=== PATIENT | male | born 1980 | race Caucasian/White ===

== ENCOUNTER 2019-04-13 08:31 | Day surgery (SDC) | payer MEDICAID ==
[2019-04-09 14:53] LABS: CLARITY,URINE CLEAR (Clear); COLOR,URINE STRAW (Yellow); GLUCOSE, URINE NEGATIVE (Neg); KETONES,URINE NEGATIVE (Neg); LEUKOCYTE ESTERASE ,URINE NEGATIVE (Neg); NITRITES, URINE NEGATIVE (Neg); OCCULT BLOOD,URINE NEGATIVE (Neg); PROTEIN,URINE NEGATIVE (Neg); UA COLLECTION TYPE NON-SPECIFIED; UROBILINOGEN,URINE 0.2 E.U/dL (0.2-1.0)
[2019-04-09 14:54] LABS: BASOPHILS # (AUTO) 0.1 X10'3 (0-0.2); BASOPHILS % (AUTO) 1.2 % (0-1); EOSINOPHILS # (AUTO) 0.3 X10'3 (0-0.9); LYMPHOCYTES # (AUTO) 1.7 X10'3 (1.1-4.8); LYMPHOCYTES % (AUTO) 25.8 % (21-51); MEAN CORPUSCULAR HEMOGLOBIN 33.6 PG (27.0-31.0); MEAN CORPUSCULAR HGB CONC 34.9 g/dL (33.0-36.5); MEAN CORPUSCULAR VOLUME 96.5 FL (78-98); MEAN PLATELET VOLUME 7.5 FL (7.4-10.4); MONOCYTES # (AUTO) 0.5 X10'3 (0-0.9); MONOCYTES % (AUTO) 7.8 % (2-12); NEUTROPHILS # (AUTO) 4.1 X10'3 (1.8-7.7); NEUTROPHILS % (AUTO) 60.2 % (42-75); PRE OP HEMOGLOBIN 14.3 g/dL (14.0-17.9); PRE OP PLATELET COUNT 275 X10'3 (140-440); RED BLOOD COUNT 4.25 X10'6 (4.70-6.10); RED CELL DISTRIBUTION WIDTH 13.3 % (11.5-14.5)
[2019-04-09 15:14] LABS: ALBUMIN 3.8 G/DL (3.4-5.0); ALBUMIN/GLOBULIN RATIO 1.1 (1.1-1.5); ALKALINE PHOSPHATASE 63 IU/L (46-116); BLOOD UREA NITROGEN 14 MG/DL (7-18); BUN/CREATININE RATIO 18.4 (5.4-32.0); CALCIUM 8.5 MG/DL (8.5-10.1); CHLORIDE 109 MMOL/L (99-107); CREATININE 0.76 MG/DL (0.60-1.10); PRE OP ALT 25 U/L (30-65); PRE OP ANION GAP 11 (8-16); PRE OP AST 16 U/L (10-37); PRE OP BILIRUB, TOTAL 0.2 MG/DL (0.0-1.0); PRE OP GLUCOSE 87 MG/DL (70-104); PRE OP POTASSIUM 3.7 MMOL/L (3.4-5.1); PRE OP SODIUM 144 MMOL/L (135-145); TOTAL CARBON DIOXIDE 24.3 MMOL/L (24-32); TOTAL PROTEIN 7.2 G/DL (6.4-8.2); eGFR > 90 ML/MIN
[~2019-04-13] VITALS: Ht 175.3 cm; Wt 70.1 kg
[2019-04-13] VITALS (12 sets, daily range): BP systolic 97–133; BP diastolic 66–91
[~2019-04-13 08:31] MED LIST: NO HOME MEDS; albuterol 2.5 MG/3 ML nebule NEB ONE; cefazolin/dext.iso 2gm/100 ML IV ONE; famotidine 20mg tablet PO ONE; ringers solution, lacted 1,000 ML IV SCH
[2019-04-13] MEDS ORDERED: ringers solution, lacted 1,000 ML IV SCH (11:41)
[2019-04-13] MEDS ORDERED: morphine 4 MG/ML inj SYRINge IV PRN ×2 (11:45)
[2019-04-13] MEDS ORDERED: ondansetron/PF 4mg/2ml inj IV PRN (11:45)
[2019-04-13] MEDS ORDERED: proCHLORperazine 10 MG/2 ml inj IV PRN (11:45)
[2019-04-13] MEDS ORDERED: meperidine/PF 25mg/ml syringe IV PRN ×3 (11:45)
[2019-04-13 12:13] LABS: PRE OP PROTIME 9.8 SECONDS (9.0-12.0)
[2019-04-13] MEDS ORDERED: BUPIVAcaine/PF 2.5 mg/ml (0.25%) 30ml vial ONE (12:16)
[2019-04-13] MEDS ORDERED: LIDOcaine 1% 30ml preserv. free vial ONE (12:16)
[2019-04-13] MEDS ORDERED: MIDAZolam 5mg/5ml vial ONE (12:35)
[2019-04-13] MEDS ORDERED: fentaNYL/PF 50MCG/1 ML 2ML syringe ONE ×2 (12:35→12:51)
[2019-04-13] MEDS ORDERED: ketamine 50mg/5ml syringe ONE (12:37)
[2019-04-13] MEDS ORDERED: propofol inj 20 ML IV ONE (12:58)
[2019-04-13] MEDS ORDERED: LIDOcaine 1%/PF 5ML 10 MG/ML VIAL ONE (12:58)
--- NOTE | 2019-04-13 13:05 | NUR ---
Received from OR via BED , accompanied by Anesthesiologist DR SANDOVAL and report given by Anesthesiolgist. PATIENT WAKING UP, DENIES PAIN, V/S WNL, NEUROVASCULAR CHECKS INTACT, 20G PIV LUE, SCD ON, DRESSING TO LEFT FLANK CDI
--- NOTE | 2019-04-13 14:45 | NUR ---
PATIENT A&OX4, DENIES PAIN, V/S WNL, NEUROVASCULAR CHECKS INTACT, 20G PIV LUE D/C, SCD OFF, DRESSING TO LEFT FLANK NEAR ABDOMEN CDI.. I HAVE REVIEWED D/C INSTRUCTIONS WITH PATIENT AND FAMILY HAVE VERBALIZED UNDERSTANDING.PATIENT WAS D/C HOME WITH ALL BELONGINGS AND FAMILY GAVE TRANSPORT HOME.
== END 2019-04-13 14:45 | disposition home or self-care (01) ==
LOC: PAS 08:31
PROVIDERS: ATTEND Surgery
DX: L72.8 Other follicular cysts of the skin and subcutaneous tissue (principal); F17.210 Nicotine dependence, cigarettes, uncomplicated; Z79.01 Long term (current) use of anticoagulants; Z79.899 Other long term (current) drug therapy
CPT/HCPCS: 11406; 36415; 80053; 81003; 82948; 85025; 85610; 85730; 93005; J2001; J2250; J2704; J3010; J3490; A4215; A4618; A6449; A7000; J7120

== ENCOUNTER 2020-03-01 14:59 | Emergency (ER) | payer MEDICAID ==
[~2020-03-01] VITALS: Ht 175.3 cm; Wt 75.0 kg
[~2020-03-01 14:59] MED LIST changes: -albuterol 2.5 MG/3 ML nebule NEB ONE; -cefazolin/dext.iso 2gm/100 ML IV ONE; -famotidine 20mg tablet PO ONE; -ringers solution, lacted 1,000 ML IV SCH
[2020-03-01 17:03] LABS: BASOPHILS # (AUTO) 0.1 X10'3 (0-0.2); BASOPHILS % (AUTO) 1.3 % (0-1); EOSINOPHILS # (AUTO) 0.1 X10'3 (0-0.9); EOSINOPHILS % (AUTO) 1.1 % (0-6); HEMATOCRIT 41.6 % (42.0-52.0); HEMOGLOBIN 13.7 g/dl (14.0-17.9); LYMPHOCYTES # (AUTO) 1.1 X10'3 (1.1-4.8); LYMPHOCYTES % (AUTO) 19.5 % (21-51); MEAN CORPUSCULAR HEMOGLOBIN 32.2 PG (27.0-31.0); MEAN CORPUSCULAR VOLUME 97.5 FL (78-98); MEAN PLATELET VOLUME 7.3 FL (7.4-10.4); MONOCYTES # (AUTO) 0.3 X10'3 (0-0.9); MONOCYTES % (AUTO) 5.5 % (2-12); NEUTROPHILS # (AUTO) 4.1 X10'3 (1.8-7.7); NEUTROPHILS % (AUTO) 72.6 % (42-75); PLATELET COUNT 256 X10'3 (140-440); RED BLOOD COUNT 4.27 X10'6 (4.70-6.10); RED CELL DISTRIBUTION WIDTH 14.3 % (11.5-14.5); WHITE BLOOD COUNT 5.6 X10'3 (4.5-11.0)
[2020-03-01 17:20] LABS: ALANINE AMINOTRANSFERASE 25 U/L (12-78); ALBUMIN 3.7 G/DL (3.4-5.0); ALBUMIN/GLOBULIN RATIO 1.1 (1.1-1.5); ALKALINE PHOSPHATASE 64 IU/L (46-116); ANION GAP 14 (8-16); ASPARTATE AMINO TRANSFERASE 25 U/L (10-37); BILIRUBIN,TOTAL 0.3 MG/DL (0.1-1.0); BLOOD UREA NITROGEN 9 MG/DL (7-18); BUN/CREATININE RATIO 12.2 (5.4-32.0); CALCIUM 7.8 MG/DL (8.5-10.1); CHLORIDE 110 MMOL/L (99-107); CREATININE 0.74 MG/DL (0.60-1.10); GLUCOSE 71 MG/DL (70-104); POTASSIUM 3.4 MMOL/L (3.5-5.1); SODIUM 146 MMOL/L (135-145); TOTAL PROTEIN 7.1 G/DL (6.4-8.2); eGFR > 90 ML/MIN
--- NOTE | 2020-03-01 18:05 | NUR ---
PT SLEEPING, VS UPDATED
--- NOTE | 2020-03-01 19:14 | NUR ---
Per Barbie REARDON, patient is to remain NPO at this time
--- NOTE | 2020-03-01 20:49 | NUR ---
PT WAS GAIT TESTED AROUND THE ER WITHOUT ASSISTANCE
[2020-03-01 21:55] VITALS: BP 130/78
== END 2020-03-01 21:50 | disposition home or self-care (01) ==
LOC: ER 15:00
DX: F10.129 Alcohol abuse with intoxication, unspecified (principal); R11.10 Vomiting, unspecified; F12.90 Cannabis use, unspecified, uncomplicated; F15.90 Other stimulant use, unspecified, uncomplicated; V29.9XXA Motorcycle rider (driver) (passenger) injured in unspecified traffic accident, initial encounter; Y93.89 Activity, other specified; Y92.488 Other paved roadways as the place of occurrence of the external cause; Y99.8 Other external cause status; Y90.0 Blood alcohol level of less than 20 mg/100 ml
CPT/HCPCS: 36415; 70450; 71045; 72125; 80053; 80320; 85025; 99285

== ENCOUNTER 2020-03-10 07:26 | Emergency (ER) | payer MEDICAID ==
[~2020-03-10] VITALS: Ht 175.3 cm; Wt 66.0 kg
[2020-03-10] MEDS ORDERED: ibuprofen tablet 400 MG TABLET PO ONE (08:00)
[2020-03-10] MEDS ORDERED: morphine 4 MG/ML inj SYRINge IM ONE (08:35)
[2020-03-10] MEDS ORDERED: HYDR-3965 PO (09:19)
[2020-03-10 09:48] VITALS: BP 136/93
== END 2020-03-10 09:54 | disposition home or self-care (01) ==
LOC: ER 07:27
DX: S42.291A Other displaced fracture of upper end of right humerus, initial encounter for closed fracture (principal); F12.90 Cannabis use, unspecified, uncomplicated; F15.90 Other stimulant use, unspecified, uncomplicated; Z98.890 Other specified postprocedural states; Z72.89 Other problems related to lifestyle; Z79.899 Other long term (current) drug therapy; V29.9XXA Motorcycle rider (driver) (passenger) injured in unspecified traffic accident, initial encounter; Y93.89 Activity, other specified; Y92.488 Other paved roadways as the place of occurrence of the external cause; Y99.8 Other external cause status
CPT/HCPCS: 29105; 73020; 73060; 73200; 96372; 99284; J2270

== ENCOUNTER 2020-03-22 08:25 | Day surgery (SDC) | payer MEDICAID ==
[2020-03-21 16:06] LABS: BASOPHILS # (AUTO) 0.1 X10'3 (0-0.2); BASOPHILS % (AUTO) 1.1 % (0-1); EOSINOPHILS # (AUTO) 0.2 X10'3 (0-0.9); EOSINOPHILS % (AUTO) 4.8 % (0-6); LYMPHOCYTES # (AUTO) 1.3 X10'3 (1.1-4.8); LYMPHOCYTES % (AUTO) 25.1 % (21-51); MEAN CORPUSCULAR HEMOGLOBIN 32.8 PG (27.0-31.0); MEAN CORPUSCULAR HGB CONC 33.9 g/dL (33.0-36.5); MONOCYTES # (AUTO) 0.5 X10'3 (0-0.9); MONOCYTES % (AUTO) 9.2 % (2-12); NEUTROPHILS # (AUTO) 3.1 X10'3 (1.8-7.7); NEUTROPHILS % (AUTO) 59.8 % (42-75); PRE OP HEMATOCRIT 40.6 % (42.0-52.0); PRE OP HEMOGLOBIN 13.7 g/dL (14.0-17.9); PRE OP PLATELET COUNT 396 X10'3 (140-440); RED BLOOD COUNT 4.18 X10'6 (4.70-6.10); RED CELL DISTRIBUTION WIDTH 13.1 % (11.5-14.5)
[2020-03-21 16:32] LABS: ALBUMIN 3.8 G/DL (3.4-5.0); ALBUMIN/GLOBULIN RATIO 0.9 (1.1-1.5); ALKALINE PHOSPHATASE 94 IU/L (46-116); BLOOD UREA NITROGEN 16 MG/DL (7-18); BUN/CREATININE RATIO 22.5 (5.4-32.0); CALCIUM 8.8 MG/DL (8.5-10.1); CHLORIDE 107 MMOL/L (99-107); CREATININE 0.71 MG/DL (0.60-1.10); PRE OP ALT 25 U/L (30-65); PRE OP ANION GAP 9 (8-16); PRE OP AST 31 U/L (10-37); PRE OP BILIRUB, TOTAL 0.3 MG/DL (0.0-1.0); PRE OP GLUCOSE 79 MG/DL (70-104); PRE OP SODIUM 142 MMOL/L (135-145); TOTAL CARBON DIOXIDE 25.7 MMOL/L (24-32); TOTAL PROTEIN 7.9 G/DL (6.4-8.2); eGFR > 90 ML/MIN
[~2020-03-22] VITALS: Ht 175.3 cm; Wt 70.5 kg
[~2020-03-22 08:25] MED LIST changes: +ceFAZolin 2gm in dextrose, iso 50 ML IV ONE; +famotidine 20mg tablet PO ONE; +ringers solution, lacted 1,000 ML IV SCH; +vancomycin 1,500 MG in NS 300ml IV soln IV ONE
[2020-03-22 08:35] VITALS: BP 140/79
[2020-03-22] MEDS ORDERED: sevoflurane 250ml liquid IH ONE (12:07)
[2020-03-22] MEDS ORDERED: cloNIDine hcl/PF 100mcg/ml inj ONE (12:12)
[2020-03-22] MEDS ORDERED: fentaNYL/PF 50MCG/1 ML 2ML syringe ONE (12:13)
[2020-03-22] MEDS ORDERED: midazolam 2 mg/2 ml injection ONE ×2 (12:14)
[2020-03-22] MEDS ORDERED: propofol inj 20 ML IV ONE (12:32)
[2020-03-22] MEDS ORDERED: ROPIVAcaine 0.5% (5mg/ml) 30ml vial ONE (12:32)
[2020-03-22] MEDS ORDERED: dexamethasone sod phosphate 4mg/ml inj. ONE (12:32)
[2020-03-22] MEDS ORDERED: ringers solution, lacted 1,000 ML IV SCH (13:26)
[2020-03-22] MEDS ORDERED: meperidine/PF 25mg/ml syringe IV PRN ×3 (13:30)
[2020-03-22] MEDS ORDERED: ondansetron/PF 4mg/2ml inj IV PRN (13:30)
[2020-03-22] MEDS ORDERED: proCHLORperazine 10 MG/2 ml inj IV PRN (13:30)
[2020-03-22] MEDS ORDERED: morphine 2 MG/ML inj. syringe IV PRN (13:30)
[2020-03-22] MEDS ORDERED: morphine 4 MG/ML inj SYRINge IV PRN (13:30)
[2020-03-22] MEDS ORDERED: ondansetron/PF 4mg/2ml inj ONE (14:00)
--- NOTE | 2020-03-22 14:05 | NUR ---
Received from OR via [facility], accompanied by Anesthesiologist EVELYN and report given by Anesthesiolgist. PATIENT WITH 20G PIV IN LEFT UE RUNNING LR AT 100. RIGHT UE IN SLING AND HAS A + RADIAL PULSE. SLING ON. VSS. 10L MASK ON WITH 100% SATURATIONS. Addendum: 03/22/20 at 1415 by Michel Michel RN, RN Amended: Links added.
[2020-03-22 14:07] VITALS: BP 132/90
[2020-03-22 14:17] VITALS: BP 126/89
[2020-03-22 14:27] VITALS: BP 127/88
[2020-03-22 14:37] VITALS: BP 127/84
[2020-03-22 14:47] VITALS: BP 134/82
--- NOTE | 2020-03-22 14:57 | NUR ---
I HAVE REVIEWED D/C INSTRUCTIONS WITH PATIENT AND FAMILY AND THEY HAVE VERBALIZED UNDERSTANDING. PATIENT D/C HOME WITH ALL BELONGINGS AND FAMILY GAVE TRANSPORT HOME. RIGHT SHOULDER DRESSING IS CDI. VSS. Addendum: 03/22/20 at 1518 by Michel Michel RN, RN Amended: Links added.
== END 2020-03-22 14:57 | disposition home or self-care (01) ==
LOC: PAS 08:25
PROVIDERS: ATTEND Orthopaedic Surgery
DX: S42.231A 3-part fracture of surgical neck of right humerus, initial encounter for closed fracture (principal); G89.18 Other acute postprocedural pain; Z72.89 Other problems related to lifestyle; F17.210 Nicotine dependence, cigarettes, uncomplicated; Z98.890 Other specified postprocedural states; Z79.899 Other long term (current) drug therapy; W19.XXXA Unspecified fall, initial encounter; Y93.89 Activity, other specified; Y92.89 Other specified places as the place of occurrence of the external cause; Y99.8 Other external cause status
CPT/HCPCS: 23615; 36415; 64415; 73030; 76000; 80053; 82948; 85025; 93005; A6222; C1713; J0735; J1100; J2250; J2405; J2704; J3010; J3370; J7040; J7120; A4565; A4618; A6449; A7000; J2795

== ENCOUNTER 2020-04-10 21:14 | Emergency (ER) | payer MEDICAID ==
[~2020-04-10] VITALS: Ht 175.3 cm; Wt 81.8 kg
[~2020-04-10 21:14] MED LIST changes: -ceFAZolin 2gm in dextrose, iso 50 ML IV ONE; -famotidine 20mg tablet PO ONE; -ringers solution, lacted 1,000 ML IV SCH; -vancomycin 1,500 MG in NS 300ml IV soln IV ONE
[2020-04-10 21:26] VITALS: BP 112/74
[2020-04-10] MEDS ORDERED: TETanus/Pertussis (Acell)/Diphther VAC/PF (Tdap-Adult) 0.5ml syringe IMVAC ONE (22:05)
[2020-04-10] MEDS ORDERED: LIDOcaine 1% W/epiNEPHrine 1:200,000 10ml vial IJ ONE (22:05)
[2020-04-10] MEDS ORDERED: bacitracin 15gm ointment TP ONE (23:00)
[2020-04-10] MEDS ORDERED: CEPH-572 PO (23:04)
== END 2020-04-10 23:16 | disposition home or self-care (01) ==
LOC: ER 21:14
DX: S61.512A Laceration without foreign body of left wrist, initial encounter (principal); F10.129 Alcohol abuse with intoxication, unspecified; F12.90 Cannabis use, unspecified, uncomplicated; F15.90 Other stimulant use, unspecified, uncomplicated; Z79.899 Other long term (current) drug therapy; W18.30XA Fall on same level, unspecified, initial encounter; Y93.89 Activity, other specified; Y92.89 Other specified places as the place of occurrence of the external cause; Y99.8 Other external cause status; Y90.0 Blood alcohol level of less than 20 mg/100 ml
CPT/HCPCS: 12002; 73100; 90471; 90715; 99283

== ENCOUNTER 2020-09-14 23:10 | Emergency (ER) | payer MEDICAID ==
[~2020-09-14] VITALS: Ht 172.7 cm; Wt 72.7 kg
[2020-09-14] MEDS ORDERED: haloperidol lactate 5mg/ml inj IM ONE (23:30)
[2020-09-14] MEDS ORDERED: LORazepam 2 mg/ml vial IM ONE (23:30)
[2020-09-14] MEDS ORDERED: diphenhydrAMINE 50 mg/ml inj IM ONE (23:30)
[2020-09-14 23:44] LABS: BASOPHILS % (AUTO) 0.3 % (0-1); EOSINOPHILS # (AUTO) 0.1 X10'3 (0-0.9); EOSINOPHILS % (AUTO) 1.2 % (0-6); HEMATOCRIT 34.6 % (42.0-52.0); HEMOGLOBIN 11.9 g/dl (14.0-17.9); LYMPHOCYTES # (AUTO) 0.5 X10'3 (1.1-4.8); LYMPHOCYTES % (AUTO) 7.4 % (21-51); MEAN CORPUSCULAR HEMOGLOBIN 32.8 PG (27.0-31.0); MEAN CORPUSCULAR HGB CONC 34.3 g/dL (33.0-36.5); MEAN CORPUSCULAR VOLUME 95.6 FL (78-98); MEAN PLATELET VOLUME 7.4 FL (7.4-10.4); MONOCYTES # (AUTO) 0.9 X10'3 (0-0.9); MONOCYTES % (AUTO) 12.1 % (2-12); NEUTROPHILS # (AUTO) 5.8 X10'3 (1.8-7.7); PLATELET COUNT 222 X10'3 (140-440); RED BLOOD COUNT 3.62 X10'6 (4.70-6.10); RED CELL DISTRIBUTION WIDTH 13.3 % (11.5-14.5); WHITE BLOOD COUNT 7.3 X10'3 (4.5-11.0)
--- NOTE | 2020-09-14 23:54 | NUR ---
Pt attempted to run out of room prior to administration of benadryl, haldol and ativan. Pt believed I was going to inject him with cyanide. Security assited in calming down pt and IM injection of meds were given.
[2020-09-14 23:58] LABS: ALANINE AMINOTRANSFERASE 155 U/L (12-78); ALBUMIN 3.4 G/DL (3.4-5.0); ALKALINE PHOSPHATASE 87 IU/L (46-116); ANION GAP 11 (8-16); ASPARTATE AMINO TRANSFERASE 181 U/L (10-37); BILIRUBIN,TOTAL 0.5 MG/DL (0.1-1.0); BLOOD UREA NITROGEN 20 MG/DL (7-18); BUN/CREATININE RATIO 21.3 (5.4-32.0); CALCIUM 8.9 MG/DL (8.5-10.1); CHLORIDE 101 MMOL/L (99-107); CREATININE 0.94 MG/DL (0.60-1.10); GLUCOSE 103 MG/DL (70-104); POTASSIUM 3.5 MMOL/L (3.5-5.1); SODIUM 139 MMOL/L (135-145); TOTAL CARBON DIOXIDE 26.6 MMOL/L (24-32); TOTAL PROTEIN 6.8 G/DL (6.4-8.2); eGFR 88 ML/MIN
[2020-09-15 00:08] LABS: ETHANOL < 0.010 GM/DL (0.0-0.010)
--- NOTE | 2020-09-15 01:00 | NUR ---
Pt sleeping comfortably, lights dimmed.
[2020-09-15 01:05] LABS: URINE AMPHETAMINE SCREEN POSITIVE (Neg); URINE BARBITUATE SCREEN NEGATIVE (Neg); URINE BENZODIAZEPINES SCREEN NEGATIVE (Neg); URINE CANNABINOID SCREEN POSITIVE (Neg); URINE COCAINE SCREEN NEGATIVE (Neg); URINE METHADONE SCREEN NEGATIVE (Neg); URINE OPIATE SCREEN NEGATIVE (Neg); URINE PHENCYCLIDINE SCREEN NEGATIVE (Neg)
--- NOTE | 2020-09-15 02:00 | NUR ---
Pt sleeping comfortably, lights dimmed
--- NOTE | 2020-09-15 06:33 | NUR ---
Pt sleeping on right side. Respirations unlabored. NAD.
--- NOTE | 2020-09-15 07:30 | NUR ---
Pt sleeping on right side. Respirations unlabored. NAD
--- NOTE | 2020-09-15 08:05 | NUR ---
Pt walked to overflow with standby assist.
--- NOTE | 2020-09-15 09:00 | NUR ---
Received pt around 0808. Pt immediately got in bed and fell to sleep.
--- NOTE | 2020-09-15 11:00 | NUR ---
Pt never woke up for breakfast and continues to sleep without signs of distress.
--- NOTE | 2020-09-15 13:00 | NUR ---
Pt remains asleep in no apparent distress.
[2020-09-15 14:19] VITALS: BP 109/71
--- NOTE | 2020-09-15 15:00 | NUR ---
Pt up to the bathroom x 1 and back to sleep.
--- NOTE | 2020-09-15 17:00 | NUR ---
Pt cooperative with assessment by [facility] who found pt to NOT meet criteria for 5150 and pt is being discharged to self.
== END 2020-09-15 17:20 | disposition home or self-care (01) ==
LOC: ER 23:11
DX: F15.10 Other stimulant abuse, uncomplicated (principal); F29 Unspecified psychosis not due to a substance or known physiological condition; F12.90 Cannabis use, unspecified, uncomplicated; F19.90 Other psychoactive substance use, unspecified, uncomplicated
CPT/HCPCS: 36415; 80053; 80305; 80320; 84443; 85025; 96372; 99285; J1200; J1630; J2060

== ENCOUNTER 2020-10-17 08:17 | Emergency (ER) | payer MEDICAID ==
[~2020-10-17] VITALS: Ht 177.8 cm; Wt 77.3 kg
[2020-10-17 08:23] VITALS: BP 132/83
== END 2020-10-17 09:44 | disposition home or self-care (01) ==
LOC: ER 08:18
DX: G89.29 Other chronic pain (principal); M25.571 Pain in right ankle and joints of right foot; R46.0 Very low level of personal hygiene; F12.90 Cannabis use, unspecified, uncomplicated; F15.90 Other stimulant use, unspecified, uncomplicated; Z56.0 Unemployment, unspecified; Z72.89 Other problems related to lifestyle; Z59.0 Homelessness
CPT/HCPCS: 99283

== ENCOUNTER 2022-10-21 22:25 | Emergency (ER) | payer MEDICAID ==
[~2022-10-21] VITALS: Ht 175.3 cm; Wt 75.0 kg
[2022-10-21 22:49] LABS: BASOPHILS # (AUTO) 0.1 X10'3 (0-0.2); BASOPHILS % (AUTO) 0.5 % (0-1); EOSINOPHILS % (AUTO) 0.1 % (0-6); HEMATOCRIT 39.9 % (42.0-52.0); HEMOGLOBIN 13.5 g/dl (14.0-17.9); LYMPHOCYTES # (AUTO) 0.5 X10'3 (1.1-4.8); LYMPHOCYTES % (AUTO) 3.7 % (21-51); MEAN CORPUSCULAR HEMOGLOBIN 30.6 PG (27.0-31.0); MEAN CORPUSCULAR HGB CONC 33.8 g/dL (33.0-36.5); MEAN CORPUSCULAR VOLUME 90.5 FL (78-98); MEAN PLATELET VOLUME 7.4 FL (7.4-10.4); MONOCYTES # (AUTO) 0.4 X10'3 (0-0.9); MONOCYTES % (AUTO) 3.2 % (2-12); NEUTROPHILS # (AUTO) 12.2 X10'3 (1.8-7.7); NEUTROPHILS % (AUTO) 92.5 % (42-75); PLATELET COUNT 302 X10'3 (140-440); RED BLOOD COUNT 4.41 X10'6 (4.70-6.10); RED CELL DISTRIBUTION WIDTH 12.8 % (11.5-14.5); WHITE BLOOD COUNT 13.2 X10'3 (4.5-11.0)
[2022-10-21 23:09] LABS: ALANINE AMINOTRANSFERASE 29 U/L (12-78); ALBUMIN 4.3 G/DL (3.4-5.0); ALBUMIN/GLOBULIN RATIO 1.3 (1.1-1.5); ALKALINE PHOSPHATASE 97 IU/L (46-116); ANION GAP 13 (8-16); ASPARTATE AMINO TRANSFERASE 39 U/L (10-37); BILIRUBIN,TOTAL 0.6 MG/DL (0.1-1.0); BLOOD UREA NITROGEN 31 MG/DL (7-18); BUN/CREATININE RATIO 33.3 (5.4-32.0); CALCIUM 8.6 MG/DL (8.5-10.1); CHLORIDE 103 MMOL/L (99-107); CREATINE KINASE 979 U/L (39-308); CREATININE 0.93 MG/DL (0.60-1.10); GLUCOSE 83 MG/DL (70-104); POTASSIUM 4.1 MMOL/L (3.5-5.1); SODIUM 137 MMOL/L (135-145); TOTAL CARBON DIOXIDE 20.8 MMOL/L (24-32); TOTAL PROTEIN 7.5 G/DL (6.4-8.2); eGFR 89 ML/MIN
[2022-10-21 23:22] VITALS: BP 140/89
[2022-10-21 23:39] LABS: PLATELET ESTIMATE NORMAL; TOTAL CELLS COUNTED 100
[2022-10-22] MEDS ORDERED: normal saline 1000ML IV soln IV ONE (00:05)
[2022-10-22] MEDS ORDERED: normal saline 1000ml 1,000 ML IV ONE (00:30)
[2022-10-22 01:21] LABS: CLARITY,URINE SLIGHTLY CLOUDY (Clear); COLOR,URINE YELLOW (Yellow); GLUCOSE, URINE NEGATIVE (Neg); KETONES,URINE 40 mg/dl (Neg); LEUKOCYTE ESTERASE ,URINE NEGATIVE (Neg); NITRITES, URINE NEGATIVE (Neg); OCCULT BLOOD,URINE NEGATIVE (Neg); PH,URINE 5.5 (4.8-8.0); PROTEIN,URINE TRACE mg/dl (Neg); UROBILINOGEN,URINE 0.2 E.U/dL (0.2-1.0)
[2022-10-22 01:24] LABS: UA COLLECTION TYPE CLN CATCH MIDSTREAM
[2022-10-22 01:30] LABS: BACTERIA,URINE FEW /HPF (Neg); HYALINE CASTS 0-3 /LPF (NEGATIVE); RBC,URINE 0-2 /HPF (0-2); SQUAMOUS EPITHELIAL CELL,UR FEW /LPF (FEW); WBC,URINE 0-4 /HPF (0-4)
--- NOTE | 2022-10-22 01:30 | NUR ---
2ND 1000ML NACL STARTED
[2022-10-22 01:31] LABS: FINE GRANULAR CAST 0-3 /LPF (NEGATIVE)
[2022-10-22] MEDS ORDERED: acetaminophen 325mg tablet PO ONE (03:10)
--- NOTE | 2022-10-22 04:01 | NUR ---
IV DC'D PT BEING DISCHARGED DRESSING APPLIED
== END 2022-10-22 04:07 | disposition home or self-care (01) ==
LOC: ER 22:26
DX: T68.XXXA Hypothermia, initial encounter (principal); F15.10 Other stimulant abuse, uncomplicated; F17.200 Nicotine dependence, unspecified, uncomplicated; F12.90 Cannabis use, unspecified, uncomplicated; Z59.00 Homelessness unspecified; Z56.0 Unemployment, unspecified; Z72.89 Other problems related to lifestyle; X31.XXXA Exposure to excessive natural cold, initial encounter
CPT/HCPCS: 36415; 71045; 80053; 81001; 82550; 83605; 83880; 84484; 85007; 85025; 93005; 96360; 96361; 99285; J7030

== ENCOUNTER 2024-03-11 09:48 | Emergency (ER) | payer MEDICAID ==
[~2024-03-11] VITALS: Ht 175.3 cm; Wt 68.6 kg
[2024-03-11] MEDS: TETanus/Pertussis (Acell)/Diphther VAC/PF (Tdap-Adult) 0.5ml syringe IMVAC ONE (10:37)
[2024-03-11] MEDS: clindamycin 150mg capsule PO ONE (10:41)
[2024-03-11] MEDS: ibuprofen 200mg tablet PO ONE (10:41)
[2024-03-11] MEDS: LIDOcaine 1% 30ml preserv. free vial IJ STA (10:51)
[2024-03-11] MEDS ORDERED: IBUP-1985 PO (11:07)
[2024-03-11] MEDS ORDERED: CLIN300C17 PO (11:07)
[2024-03-11 11:22] VITALS: BP 122/82; PULSE 83; RESP 16; TEMP 98.6; O2SAT 96
== END 2024-03-11 11:30 | disposition home or self-care (01) ==
LOC: ER 09:49
DX: K13.0 Diseases of lips (principal); F10.90 Alcohol use, unspecified, uncomplicated; F12.90 Cannabis use, unspecified, uncomplicated; F15.90 Other stimulant use, unspecified, uncomplicated; F19.90 Other psychoactive substance use, unspecified, uncomplicated; Z59.00 Homelessness unspecified; Z56.0 Unemployment, unspecified; Z79.2 Long term (current) use of antibiotics; Z79.1 Long term (current) use of non-steroidal anti-inflammatories (NSAID); Z72.89 Other problems related to lifestyle
CPT/HCPCS: 10060; 87070; 90471; 90715; 99283; A6407; 87077; 87186; A6449